=== PATIENT | male | born 1935 | race Caucasian/White ===

== ENCOUNTER 2016-12-11 09:31 | Emergency (ER) | payer MEDICARE ==
[2016-12-11] MEDS ORDERED: XYLOCAINE 4% TOPICAL SOLUTION 50 ML TOP ONE (09:51)
[2016-12-11] MEDS ORDERED: NEOSYNEPHRINE 0.5% NASAL SPRAY/DROPS NS ONE (09:51)
[2016-12-11] MEDS ORDERED: TRANEXAMIC ACID TP ONE (09:53)
[2016-12-11] MEDS ORDERED: NEOSYNEPHRINE 0.5% NASAL SPRAY/DROPS ONE (09:54)
[2016-12-11] MEDS ORDERED: XYLOCAINE 4% TOPICAL SOLUTION 50 ML ONE (09:54)
--- NOTE | 2016-12-11 09:56 | ERPHSYRPT ---
- History of Present Illness Time Seen by Provider: 12/11/16 09:46 Source: patient, family Patient Subjective Stated Complaint: PT REPORTS NOSEBLEED BEGINNING NHAN 0700 THIS AM-DENIES INJURY-PT TAKES COUMADIN Triage Nursing Assessment: NOSE ACTIVELY BLEEDING OUT OF BOTH NARES UPON ARRIVAL -PRESSURE CLAMP PLACED-BLEEDING NOW CONTROLLED-RESP NONLABORED-PT ABLE TO SPEAK IN COMPLETE SENTENCES Physician History: CC: nose bleed Hx: Nosebleed since this AM. No injury. He takes coumadin. No other bleeding. No pain. ENT Location: nose (left) Allergies/Adverse Reactions: amlodipine Adverse Reaction (Verified 12/11/16 09:43) lisinopril Adverse Reaction (Verified 12/11/16 09:43) Swelling Home Medications: Aspirin [[place] Aspirin] 81 mg PO DAILY 05/30/16 [History] Carvedilol 12.5 mg [Coreg 12.5 mg] 18.75 mg PO BID 05/30/16 [History] Digoxin 0.125 mg Tablet [Lanoxin 0.125MG TABLET] 0.125 mg PO DAILY [History] Furosemide [Lasix] 20 mg PO HS 05/30/16 [History] Losartan Potassium 25 mg PO DAILY 05/30/16 [History] Metformin HCl 425 mg PO BID 05/30/16 [History] Warfarin Sodium 5 mg [Coumadin 5 MG] 5 mg PO HS 05/30/16 [History] Hx Tetanus, Diphtheria Vaccination/Date Given: No Hx Influenza Vaccination/Date Given: Yes Hx Pneumococcal Vaccination/Date Given: Yes Immunizations Up to Date: Yes - Review of Systems Constitutional: No Fever, No Chills Ears, Nose, & Throat: Epistaxis Respiratory: No Dyspnea Cardiac: No Chest Pain Abdominal/Gastrointestinal: No Abdominal Pain, No Vomiting All Other Systems: Reviewed and Negative - Past Medical History Pertinent Past Medical History: Yes Neurological History: Other ENT History: Cataracts Cardiac History: Congestive Heart Failure, Hypertension, Other Respiratory History: CHF Endocrine Medical History: Diabetes Type II Musculoskeletal History: No Pertinent History GI Medical History: Other History: No Pertinent History Psycho-Social History: No Pertinent History Male Reproductive Disorders: Other Other Medical History: Headaches; recent balance and coordination issues; benign tumor of large intestine removed 1984; scrotal swelling - Past Surgical History Past Surgical History: Yes Neuro Surgical History: No Pertinent History Cardiac: Valve Replacement Respiratory: No Pertinent History Gastrointestinal: Other Genitourinary: No Pertinent History Musculoskeletal: No Pertinent History Male Surgical History: Vasectomy Other Surgical History: Cataract removal - Social History Smoking Status: Current some day smoker How long have you smoked: 66 Exposure to second hand smoke: Yes Drug Use: none Patient Lives Alone: No - Nursing Vital Signs Nursing Vital Signs: Initial Vital Signs Temperature 98.1 F Temperature Source Oral Pulse Rate 77 Respiratory Rate 22 Blood Pressure [Right Arm] 173/76 Pain Intensity 0 - Physical Exam General Appearance: alert Eye Exam: bilateral eye: PERRL, other (?icterus) Nasal Exam: active bleeding (left), dried blood Throat Exam: normal, pharynx normal Neck Exam: supple Cardiovascular/Respiratory Exam: chest non-tender, normal breath sounds Neurologic Exam: alert, oriented x 3, cooperative Skin Exam: warm, dry SpO2 Interpretation: normal SpO2: 96 Oxygen Delivery: Room Air Procedures - Additional Procedures Progress: Epistaxis treatment: Blood from left nares. Neosynephrine and lidocaine placed in left nare. Still bleeding so TXA 500mg placed left nare on cotton carrier. Still bleeding so 7.5cm AP rhinorocket placed left nare. Bleeding improved. - Course Nursing assessment & vital signs reviewed: Yes Ordered Tests: Active Orders 24 hr Category Date Time Status ACCUCHECK [Accucheck] STAT Care 12/11/16 11:33 Active Apply Nose Clip STAT Care 12/11/16 09:51 Active Epistaxis Set Up STAT Care 12/11/16 09:51 Active 2000 Calorie ADA Diet 12/11/16 Lunch Active CBC W DIFF Stat Lab 12/11/16 09:45 Completed CMP Stat Lab 12/11/16 09:51 Completed DIGOXIN Stat Lab 12/11/16 09:51 Completed PROTIME WITH INR Stat Lab 12/11/16 09:45 Completed Medication Summary Discontinued Medications Generic Name Dose Route Start Last Admin Trade Name Freq PRN Reason Stop Dose Admin Acetaminophen/Hydrocodone Bitart 1 tab 12/11/16 12:12 [place] 5/325 Mg PO 12/11/16 12:13 STAT ONE Amoxicillin 500 mg 12/11/16 12:13 Amoxil 500 Mg PO 12/11/16 12:14 STAT ONE Lidocaine HCl 10 ml 12/11/16 09:51 12/11/16 10:10 Xylocaine 4% Topical Solution 50 Ml TOP 12/11/16 09:52 10 ml STAT ONE Administration Lidocaine HCl Confirm 12/11/16 09:54 Xylocaine 4% Topical Solution 50 Ml Administered 12/11/16 09:55 Dose 1 ml .ROUTE .STK-MED ONE Phenylephrine HCl 15 ml 12/11/16 09:51 12/11/16 10:10 Neosynephrine 0.5% Nasal [place]/Drops NS 12/11/16 09:52 15 ml STAT ONE Administration Phenylephrine HCl Confirm 12/11/16 09:54 Neosynephrine 0.5% Nasal [place]/Drops Administered 12/11/16 09:55 Dose 15 ml .ROUTE .STK-MED ONE Tranexamic Acid 1,000 mg 12/11/16 09:53 12/11/16 10:10 Tranexamic Acid TP 12/11/16 09:54 1,000 mg STAT ONE Administration Lab/Rad Data: Laboratory Result Diagrams 12/11/16 09:45 12/11/16 09:51 Laboratory Results 12/11/16 12/11/16 12/11/16 Range/Units 09:51 09:45 09:45 WBC 9.7 (4.0-10.5) K/mm3 RBC 4.11 (4.1-5.6) M/mm3 Hgb 11.8 L (12.5-18.0) gm/dl Hct 36.7 L (42-50) % MCV 89.3 (78-100) fl MCH 28.7 (26-32) pg MCHC 32.2 (32-36) g/dl RDW 15.0 H (11.5-14.0) % Plt Count 194 (150-450) K/mm3 MPV 11.5 H (6-9.5) fl Gran % 74.8 H (36.0-66.0) % Lymphocytes % 13.4 L (24.0-44.0) % Monocytes % 8.9 (0.0-12.0) % Eosinophils % 2.6 (0.00-5.0) % Basophils % 0.3 (0.0-0.4) % Basophils # 0.03 (0-0.4) INR 3.88 H (0.8-3.0) Sodium 137 (136-145) mEq/L Potassium 4.4 (3.5-5.1) mEq/L Chloride 101 (98-107) mEq/L Carbon Dioxide 25.8 (21-32) mEq/L Anion Gap 14.8 (5-15) MEQ/L BUN 24 H (9-20) mg/dL Creatinine 1.46 H (0.55-1.30) mg/dl Estimated GFR 50 ML/MIN Glucose 178 H (70-110) MG/DL Calcium 8.8 (8.5-10.1) mg/dL Total Bilirubin 0.5 (0.2-1.0) mg/dL AST 23 (15-37) U/L ALT 20 (12-78) U/L Alkaline Phosphatase 79 (46-116) U/L Serum Total Protein 7.8 (6.4-8.2) gm/dL Albumin 3.3 L (3.4-5.0) g/dL Digoxin 0.83 L (0.9-2.0) ng/ml - Progress Progress Note: 12/11/16 12:14 Pt ate meal tray. Mild bleeding again. Balloon deflated some. When bleeding returned it was inflated with addl air and patient was uncomfortable became agitated and tried to pull it out. He stopped. Granddaughter at the bedside. Pt not willing to be admitted. He wants to go home. Not willing to see ENT. Appt made with [facility] Friday at 9:30AM [place]. [place] and amoxil given. Will release with epistaxis instructions. Counseled pt/family regarding: lab results, diagnosis, need for follow-up - Departure Time of Disposition: 12:17 Departure Disposition: Home Clinical Impression: Epistaxis, Warfarin anticoagulation Condition: Fair Critical Care Time: No Referrals: FABIAN MCGUIRE MD [Primary Care Provider] - Instructions: Nosebleed Additional Instructions: See Dr mcguire Friday AM at [facility] at 9:30AM. Hold pressure for any bleeding and return to ER if needed. Rx amoxil. Rx norco- no driving or operating machinery today or while taking. Prescriptions: Hydrocodone Bit/Acetaminophen [[place] 5-325 Tablet] 1 each PO Q6H PRN PRN #10 tablet PRN Reason: Pain Amoxicillin [Amoxil] 1 cap PO TID #21 capsule
[2016-12-11 10:09] LABS: BASOPHIL % 0.3 % (0.0-0.4); Eosinophil % 2.6 % (0.00-5.0); Granulocytes % 74.8 % (36.0-66.0); Lymphocytes % 13.4 % (24.0-44.0); Mean Cell Volume 89.3 fl (78-100); Mean Corpuscular Hemoglobin 28.7 pg (26-32); Mean Platelet Volume 11.5 fl (6-9.5); Monocytes % 8.9 % (0.0-12.0); Platelet Count 194 K/mm3 (150-450); Red Blood Count 4.11 M/mm3 (4.1-5.6); White Blood Count 9.7 K/mm3 (4.0-10.5)
[2016-12-11 10:34] LABS: INR 3.88 (0.8-3.0); PROTIME 41.8 SECONDS (8.83-12.87)
[2016-12-11 10:45] LABS: ALBUMIN 3.3 g/dL (3.4-5.0); ANION GAP 14.8 MEQ/L (5-15); BILIRUBIN,TOTAL 0.5 mg/dL (0.2-1.0); Carbon Dioxide 25.8 mEq/L (21-32); Potassium 4.4 mEq/L (3.5-5.1); Total Protein 7.8 gm/dL (6.4-8.2)
[2016-12-11] MEDS ORDERED: NORCO 5/325 MG PO ONE (12:12)
[2016-12-11] MEDS ORDERED: AMOXIL 500 MG PO ONE (12:13)
[2016-12-11] MEDS ORDERED: AMOXIL 500 MG ONE (12:18)
[2016-12-11] MEDS ORDERED: NORCO 5/325 MG ONE (12:18)
[2016-12-11 12:51] VITALS: BP 141/69; PULSE 80; O2SAT 97
== END 2016-12-11 12:50 | disposition home or self-care (01) ==
LOC: ED 09:31
DX: R04.0 Epistaxis (principal); Z79.01 Long term (current) use of anticoagulants; I50.9 Heart failure, unspecified; I10 Essential (primary) hypertension; E11.9 Type 2 diabetes mellitus without complications; Z79.899 Other long term (current) drug therapy; Z79.84 Long term (current) use of oral hypoglycemic drugs
CPT/HCPCS: 99285; 82962; 85610; 36415; 80162; 85025; 80053; A9270 ×3